=== PATIENT | female | born 1970 | race Caucasian/White ===

== ENCOUNTER 2017-04-22 08:38 | Emergency (ER) | payer OTHER ==
[~2017-04-22] VITALS: Ht 149.9 cm; Wt 58.1 kg
[2017-04-22 09:40] VITALS: BP 151/83
--- NOTE | 2017-04-22 09:46 | NUR ---
Patient ambulated to bed 4. RN evaluating patient at bedside.
--- NOTE | 2017-04-22 10:17 | NUR ---
46/F PRESENT TO ER C/O ABDOMINAL DISTENTION/CONSTIPATION x 2 WEEKS. PAIN 7/10 ACHING NON-RADIATING. PT DENIES INJURY OR TRAUMA. DENIES VOMITING OR DIARRHEA. PT STATES SHE HAS LOSS OF APPETITE FOR THE LAST 2 WEEKS. AAOx4, PERRLA, BREATHING EVEN AND UNLABORED. ERMD NOTIFIED OF PATIENT STATUS.
[2017-04-22] MEDS ORDERED: KETOROLAC 60 MG/2 ML VIAL IM ONE (12:40)
--- NOTE | 2017-04-22 12:51 | NUR ---
MEDICATED FOR LEFT SIDED PAIN FROM NECK TO RIBS---06/24 AT THIS TIME WILL REASSESS IN 20MINS---
[2017-04-22 13:16] VITALS: BP 132/72
--- NOTE | 2017-04-22 13:16 | NUR ---
Patient discharged with v/s stable. Written and verbal after care instructions given and explained. Patient alert, oriented and verbalized understanding of instructions. Ambulatory with steady gait. All questions addressed prior to discharge. ID band removed. Patient advised to follow up with PMD. Rx of MIRALAX POWDER SOLUTION, MOTRIN 600MG AND PROLOSEC 40MG CAPS given. Patient educated on indication of medication including possible reaction and side effects. Opportunity to ask questions provided and answered.
== END 2017-04-22 13:16 | disposition home or self-care (01) ==
LOC: MED 08:49
DX: K59.00 Constipation, unspecified (principal)
CPT/HCPCS: 74022; 81002; 96372; 99284; J1885